=== PATIENT | female | born 1965 | race Caucasian/White ===

== ENCOUNTER 2017-06-03 08:03 | Emergency (ER) | payer OTHER ==
[2017-06-03 08:13] VITALS: BMI 25.7
--- NOTE | 2017-06-03 09:07 | C.PDOC ---
History Of Present Illness 51 year old female presents to ED for evaluation of shortness of breath for the past 2 months but worse in the past 2 days and worse with exertion. Pt states it feels like asthma, but pt does not have history of asthma. Denies using inhaler. Denies history of smoking, or history of DVT or PE in the past. Denies cough, chest pain, or fever. Pt is a poor historian. Time Seen by Provider: 06/03/17 08:21 Chief Complaint (Nursing): Shortness Of Breath History Per: Patient History/Exam Limitations: no limitations Onset/Duration Of Symptoms: Days Current Symptoms Are (Timing): Still Present Severity: None Pain Scale Rating Of: 0 Associated Symptoms: denies: Fever, Chills, Sweating, Chest Pain, Bloody Cough, Productive Cough, Heart Racing, Leg/Calf Pain, Ankle/Leg Swelling, Dizziness, Light-headedness, Anxiety, Tingling In Hands Or Face, Musle Spasms In Hands Or Feet Recent travel outside of the [place]: No Additional History Per: Patient Past Medical History Reviewed: Historical Data, Nursing Documentation, Vital Signs Vital Signs: Last Vital Signs Temp 98.2 F 06/03/17 13:29 Pulse 72 06/03/17 13:29 Resp 18 06/03/17 13:29 BP 154/100 H 06/03/17 13:29 Pulse Ox 99 06/03/17 13:29 Family History: States: Unknown Family Hx - Social History Hx Alcohol Use: No Hx Substance Use: No - Immunization History Hx Tetanus Toxoid Vaccination: No Hx Influenza Vaccination: No Hx Pneumococcal Vaccination: No Review Of Systems Constitutional: Negative for: Fever, Chills Cardiovascular: Negative for: Chest Pain, Palpitations, Light Headedness Respiratory: Positive for: Shortness of Breath, SOB with Excertion. Negative for: Cough, Sputum Physical Exam - Physical Exam Appears: Non-toxic, No Acute Distress Skin: Normal Color, Warm, Dry Head: Atraumatic, Normacephalic Eye(s): bilateral: Normal Inspection Oral Mucosa: Moist Chest: Symmetrical Cardiovascular: Rhythm Regular, No Murmur Respiratory: Normal Breath Sounds, No Accessory Muscle Use, No Rales, No Rhonchi , No Wheezing Gastrointestinal/Abdominal: Soft, No Tenderness Extremity: Normal ROM, No Pedal Edema Neurological/Psych: Oriented x3, Normal Speech ED Course And Treatment - Laboratory Results Result Diagrams: 06/03/17 09:18 06/03/17 09:18 ECG: Interpreted By Me, Viewed By Me ECG Rhythm: Sinus Rhythm ECG Interpretation: No Acute Changes Interpretation Of ECG: Normal axis, normal intervals. Poor R wave progression. Non-specific T wave changes. Rate From EC (bpm) O2 Sat by Pulse Oximetry: 95 (RA) Pulse Ox Interpretation: Normal Medical Decision Making Medical Decision Making: Blood work, UA, EKG, CXR ordered and reviewed. Assessment: Shortness of breath On re-eval, pt reports feeling better. Pt reports improvement after nebulizer treatment. Labs reviewed. 2 sets of troponin done due to poorly described shortness of breath. Patient is being discharged home with instructions to follow up with PMD in 1-2 days for further evaluation. Return to ED if symptoms worsen or persist. Disposition Counseled Patient/Family Regarding: Studies Performed, Diagnosis, Need For Followup, Rx Given - Disposition Referrals: [facility] [Outside] [facility] [Outside] Disposition: HOME/ ROUTINE Disposition Time: 13:12 Condition: STABLE Additional Instructions: follow up with medical clinic in 2 days call to make an appointment use medications as prescribed return to hospital if symptoms worsens or progress Prescriptions: Albuterol HFA [Ventolin HFA 90 mcg/actuation (8 g)] 2 puff IH [id number] #1 puff Instructions: Dyspnea (ED), Bronchospasm (ED) Forms: [facility] (Polish), General Discharge Instructions - Clinical Impression Clinical Impression: Dyspnea, Bronchospasm - Scribe Statement The provider has reviewed the documentation as recorded by the Amelie Reina All medical record entries made by the Averyiblinh were at my direction and personally dictated by me. I have reviewed the chart and agree that the record accurately reflects my personal performance of the history, physical exam, medical decision making, and the department course for this patient. I have also personally directed, reviewed, and agree with the discharge instructions and disposition.
[2017-06-03 09:28] LABS: BASO % 0.7 % (0.0-2.0); EOS # 0.1 K/uL (0.0-0.7); EOS % 2.1 % (0.0-4.0); HEMATOCRIT 36.4 % (34.0-47.0); LYMPH # 1.5 K/uL (1.0-4.3); LYMPH % 26.9 % (20.0-40.0); MEAN CELL VOLUME 88.8 fL (81.0-99.0); MEAN CORPUSCULAR HEMOGLOBIN 30.4 pg (27.0-31.0); MEAN CORPUSCULAR HGB CONC 34.2 g/dL (33.0-37.0); MEAN PLATELET VOLUME 7.8 fL (7.2-11.7); MONO # 0.4 K/uL (0.0-0.8); MONO % 7.5 % (0.0-10.0); RED CELL DISTRIBUTION WIDTH 13.9 % (11.5-14.5); WHITE BLOOD COUNT 5.7 K/uL (4.8-10.8)
[2017-06-03 09:37] LABS: ALB/GLOB RATIO 1.4 (1.0-2.1); ALKALINE PHOSPHATASE 78 U/L (38-126); ALT/SGPT 33 U/L (9-52); AST/SGOT 23 U/L (14-36); BILIRUBIN,TOTAL 0.7 mg/dL (0.2-1.3); BLOOD UREA NITROGEN 9 mg/dL (7-17); CALCIUM 9.1 mg/dl (8.6-10.4); CARBON DIOXIDE 32 mmol/L (22-30); CHLORIDE 100 mmol/L (98-107); GFR AFRICAN-AMERICAN > 60; GLUCOSE,RANDOM 94 mg/dL (65-105); SODIUM 138 mmol/L (132-148); TOTAL PROTEIN 6.6 g/dL (6.3-8.3)
[2017-06-03 09:40] LABS: RBC URINE < 1 /hpf (0-3); URINE BACTERIA RARE (<OCC); URINE BILIRUBIN NEGATIVE (NEGATIVE); URINE BLOOD NEGATIVE (NEGATIVE); URINE COLOR Yellow (YELLOW); URINE GLUCOSE (UA) NORMAL (Normal); URINE KETONE NEGATIVE (NEGATIVE); URINE LEUKOCYTE ESTERASE 2+ Leu/uL (Negative); URINE PROTEIN NEGATIVE (NEGATIVE); URINE UROBILINOGEN NORMAL mg/dL (0.2-1.0)
[2017-06-03 09:44] LABS: WBC URINE 11 /hpf (0-5)
--- NOTE | 2017-06-03 09:55 | RAD ---
HISTORY: SOB COMPARISON: No prior. TECHNIQUE: Chest PA and lateral FINDINGS: LUNGS: No active pulmonary disease. PLEURA: No significant pleural effusion identified. No pneumothorax apparent. CARDIOVASCULAR: Normal. OSSEOUS STRUCTURES: Thoracic spondylosis VISUALIZED UPPER ABDOMEN: Normal. OTHER FINDINGS: None. IMPRESSION: No active disease.
[2017-06-03] MEDS ORDERED: Albuterol 0.083% Inhal Sol (2.5 mg/3 mL) UD INH STA (11:13)
[2017-06-03] MEDS ORDERED: Albuterol 0.083% Inhal Sol (2.5 mg/3 mL) UD ONE (11:23)
[2017-06-03 11:42] VITALS: RESP 18
[2017-06-03 13:31] VITALS: BP 154/100; PULSE 72; TEMP 98.2
[2017-06-03 13:38] VITALS: O2SAT 95
--- NOTE | 2017-06-04 18:40 | CARD ---
APPROVED REPORT EKG Measurement Heart [id number] AR [id number] <Conclusion> Normal sinus rhythm Anterior infarct, age undetermined Abnormal ECG
== END 2017-06-03 13:40 | disposition home or self-care (01) ==
LOC: C.ER 08:03
DX: J98.01 Acute bronchospasm (principal); R06.00 Dyspnea, unspecified

== ENCOUNTER 2017-12-23 07:30 | Observation (INO) | payer OTHER ==
[2017-12-23 07:30] VITALS: BMI 25.7
--- NOTE | 2017-12-23 07:55 | C.PDOC ---
History Of Present Illness 52 y/o female with Hx of HTN and Asthma presents to ED with c/o chest pain developed this morning worse on exertion. Patient states pain is worse on left side of chest and admits to subjective dyspnea. Patient denies fever, palpitations, nausea, vomiting, leg swelling or any other complaints at this time. Time Seen by Provider: 12/23/17 07:33 Chief Complaint (Nursing): Chest Pain History Per: Patient History/Exam Limitations: no limitations Onset/Duration Of Symptoms: Hrs Current Symptoms Are (Timing): Still Present Past Medical History Reviewed: Historical Data, Nursing Documentation, Vital Signs Vital Signs: Last Vital Signs Temp 98.0 F 12/23/17 07:38 Pulse 50 L 12/23/17 13:12 Resp 12 12/23/17 13:12 BP 140/70 12/23/17 13:12 Pulse Ox 99 12/23/17 10:45 - Medical History PMH: Asthma, HTN Surgical History: No Surg Hx Family History: States: No Known Family Hx - Social History Hx Alcohol Use: No Hx Substance Use: No - Immunization History Hx Tetanus Toxoid Vaccination: No Hx Influenza Vaccination: No Hx Pneumococcal Vaccination: No Review Of Systems Except As Marked, All Systems Reviewed And Found Negative. Cardiovascular: Positive for: Chest Pain Respiratory: Positive for: Shortness of Breath Gastrointestinal: Negative for: Nausea, Vomiting, Abdominal Pain Skin: Negative for: Rash Physical Exam - Physical Exam Appears: Non-toxic, No Acute Distress Skin: Warm, Dry, No Rash Head: Atraumatic, Normacephalic Eye(s): bilateral: Normal Inspection Oral Mucosa: Moist Neck: Normal ROM, Supple Cardiovascular: Rhythm Regular Respiratory: Normal Breath Sounds, No Accessory Muscle Use, No Rales, No Rhonchi , No Wheezing Gastrointestinal/Abdominal: Soft, No Tenderness, No Guarding, No Rebound Extremity: No Pedal Edema, Capillary Refill (<2 seconds) Neurological/Psych: Oriented x3, Normal Speech ED Course And Treatment - Laboratory Results Result Diagrams: 12/23/17 08:14 12/23/17 08:14 ECG: Interpreted By Me, Viewed By Me ECG Rhythm: Sinus Rhythm, Nonspecific Changes Rate From EC (BPM) O2 Sat by Pulse Oximetry: 100 (RA) Medical Decision Making Medical Decision Making: cp r/o acs case discussed with fior, accepted by obs Disposition - Disposition Disposition: HOSPITALIZED Disposition Time: 11:00 Condition: STABLE - Clinical Impression Clinical Impression: Chest pain - Scribe Statement The provider has reviewed the documentation as recorded by the Averyibe Sylvia Sales All medical record entries made by the Scribe were at my direction and personally dictated by me. I have reviewed the chart and agree that the record accurately reflects my personal performance of the history, physical exam, medical decision making, and the department course for this patient. I have also personally directed, reviewed, and agree with the discharge instructions and disposition. Decision To Admit - Pt Status Changed To: Hospital Disposition Of: Observation - . Bed Request Type: Telemetry Admitting Physician: Jarred Reina Patient Diagnosis: Chest pain
[2017-12-23 08:23] LABS: BASO % 0.5 % (0.0-2.0); EOS % 0.1 % (0.0-4.0); HEMOGLOBIN 12.9 g/dL (11.0-16.0); LYMPH % 28.8 % (20.0-40.0); MEAN CELL VOLUME 87.8 fL (81.0-99.0); MEAN CORPUSCULAR HEMOGLOBIN 29.8 pg (27.0-31.0); MEAN CORPUSCULAR HGB CONC 33.9 g/dL (33.0-37.0); MEAN PLATELET VOLUME 8.2 fL (7.2-11.7); MONO # 0.5 K/uL (0.0-0.8); MONO % 6.6 % (0.0-10.0); NEUT # 4.5 K/uL (1.8-7.0); NRBC % 0.1 % (0.0-2.0); RBC 4.33 Mil/uL (3.80-5.20); RED CELL DISTRIBUTION WIDTH 14.4 % (11.5-14.5)
[2017-12-23 08:30] LABS: HCG,QUALITATIVE URINE NEGATIVE (NEGATIVE)
[2017-12-23 08:32] LABS: SQUAMOUS EPITHIAL < 1 /hpf (0-5); URINE BACTERIA OCC (<OCC); URINE BILIRUBIN NEGATIVE (NEGATIVE); URINE BLOOD NEGATIVE (NEGATIVE); URINE CLARITY Clear (Clear); URINE COLOR Straw (YELLOW); URINE GLUCOSE (UA) NORMAL (Normal); URINE LEUKOCYTE ESTERASE NEG Leu/uL (Negative); URINE PROTEIN NEGATIVE (NEGATIVE); URINE UROBILINOGEN NORMAL mg/dL (0.2-1.0)
[2017-12-23 08:36] LABS: D DIMER < 200 ng/mlDDU (0-243); INR 1.1; PARTIAL THROMBOPLASTIN TIME 34 SECONDS (21-34); PROTHROMBIN TIME 12.1 SECONDS (9.7-12.2)
[2017-12-23 08:44] LABS: ALB/GLOB RATIO 1.5 (1.0-2.1); ALBUMIN 4.7 g/dL (3.5-5.0); CALCIUM 9.8 mg/dl (8.6-10.4); GFR AFRICAN-AMERICAN > 60; GFR NON-AFRICAN AMERICAN > 60
[2017-12-23 08:46] LABS: ALT/SGPT 119 U/L (9-52); AST/SGOT 85 U/L (14-36); BLOOD UREA NITROGEN 13 mg/dL (7-17)
[2017-12-23 08:52] LABS: B-TYPE NATRIURETIC PEPTIDE 71.7 pg/mL (0-900)
--- NOTE | 2017-12-23 11:07 | RAD ---
Date of service: 12/23/2017 PROCEDURE: CHEST RADIOGRAPH, 1 VIEW HISTORY: chest pain COMPARISON: Chest radiograph dated 06/03/2017. FINDINGS: LUNGS: Clear. PLEURA: No pneumothorax or pleural fluid seen. CARDIOVASCULAR: Normal. OSSEOUS STRUCTURES: No significant abnormalities. VISUALIZED UPPER ABDOMEN: Normal. OTHER FINDINGS: None. IMPRESSION: No active disease.
--- NOTE | 2017-12-23 15:21 | CP.PCM.HP ---
<Sandip Caba - Last Filed: 12/23/17 19:30> History of Present Illness - History of Present Illness History of Present Illness: CC: leg swelling & shortness of breath HPI: 52 year old [place] female w/ PMHx of questionable HTN & Asthma presents to ED with 2 weeks of bilateral lower extremity swelling associated with shortness of breath. Pt states she normally can walk for several hours a day, but for the past 2 weeks she can only walk for a few minutes before becoming short of breath and having B/L extremity swelling. Pt swelling improves with rest and elevation of legs. Pt additionally has diffuse pain in back during these episodes. Pt is unable to describe the pain further but states the pain is roughly 3/10 and remains isolated in the back. Pt states she saw her primary on Wednesday and was given the below medications for the shortness of breath, swelling , and back pain. Furthermore pt states she has a sensation of feeling full with minimal diet that has been ongoing for the past several weeks. Pt denies fevers , chills, chest pain, weakness, constipation, diarrhea, nausea, vomiting. ROS: Constitutional: -fevers/chills, -nausea/vomiting HEENT: no vision changes, no hearing changes, no throat pain Cardio: no chest pain, palpation, + dyspnea Resp: + dyspnea, +dyspnea on exhertion GI: -abdominal pain, - nausea, - vomiting, : -dysruia, - increase frequency Neuro: -dizziness, -headaches, -syncope MSK: 5/5+ strength in all 4 extremities, pulses present in all extremities, PMD: Dr. Lim PMHx: HTN? Asthma? (pt denies any history, but it is stated in past charts) Meds: Prednisone 10 mg PO BID, Hydrochlorothiazide 25 mg PO QD, Naproxen 375 mg BID PSHx: Total abdominal hysterectomy with bilateral salpingo-oophorectomy Allergies: NKDA Social: Denies tobacco/smoking, Denies alcohol use, Denies FHx: Mother , had HTN, Father living, healthy, 1 of 8 siblings, 1 has diabetes & HTN Present on Admission - Present on Admission Any Indicators Present on Admission: No History of DVT/PE: No History of Uncontrolled Diabetes: No Urinary Catheter: No Decubitus Ulcer Present: No Review of Systems - Constitutional Constitutional: absent: Anorexia, Chills, Frequent Falls, Night Sweats, Weakness - EENT Eyes: absent: Change in Vision, Dry Eye Nose/Mouth/Throat: absent: Nasal Congestion, Nasal Discharge, Dry Mouth, Lip Swelling - Cardiovascular Cardiovascular: Dyspnea, Dyspnea on Exertion, Edema. absent: Chest Pain, Chest Pain at Rest, Irregular Heart Rhythm, Lightheadedness, Orthopnea, Palpitations - Respiratory Respiratory: Dyspnea, Dyspnea on Exertion. absent: Cough, Wheezing, Snoring, Stridor, Pain on Inspiration, Chest Congestion - Gastrointestinal Gastrointestinal: Early Satiety. absent: Abdominal Pain, Change in Stool Character, Cramping, Diarrhea, Excessive Flatus - Genitourinary Genitourinary: absent: Hematuria, Pyuria, Urinary Hesitance, Freq UTI - Musculoskeletal Musculoskeletal: absent: Joint Swelling, Muscle Weakness, Neck Pain, Stiffness - Neurological Neurological: absent: Abnormal Hearing, Dizziness, Headaches, Syncope - Psychiatric Psychiatric: absent: Behavioral Changes, Confusion, Depression - Endocrine Endocrine: absent: Change in Body Appearance, Polydipsia, Polyphagia, Polyuria - Hematologic/Lymphatic Hematologic: absent: Easy Bleeding, Easy Bruising Past Patient History - Past Social History Smoking Status: Never Smoked Chewing Tobacco Use: No Cigar Use: No Alcohol: None Drugs: Denies - CARDIAC Hx Hypertension: Yes - PULMONARY Hx Asthma: Yes - PSYCHIATRIC Hx Substance Use: No - SURGICAL HISTORY Hx Surgeries: No - ANESTHESIA Hx Anesthesia: No Meds Allergies/Adverse Reactions: Allergies Allergy/AdvReac Type Severity Reaction Status Date / Time No Known Allergies Allergy Verified 12/23/17 07:38 Physical Exam - Constitutional Appears: Well, Non-toxic, No Acute Distress - Head Exam Head Exam: ATRAUMATIC, NORMAL INSPECTION, NORMOCEPHALIC - Eye Exam Eye Exam: EOMI, Normal appearance - ENT Exam ENT Exam: Mucous Membranes Moist - Respiratory Exam Respiratory Exam: Clear to Auscultation Bilateral, NORMAL BREATHING PATTERN. absent: Rales, Rhonchi, Wheezes - Cardiovascular Exam Cardiovascular Exam: REGULAR RHYTHM, +S1, +S2. absent: Irregular Rhythm, Systolic Murmur - GI/Abdominal Exam GI & Abdominal Exam: Normal Bowel Sounds, Soft. absent: Bruit, Diminished Bowel Sounds, Distended, Firm, Guarding - Extremities Exam Extremities exam: Positive for: full ROM, normal inspection. Negative for: calf tenderness, joint swelling, pedal edema, tenderness - Neurological Exam Neurological exam: Alert, Altered, CN II-XII Intact, Oriented x3 - Psychiatric Exam Psychiatric exam: Normal Affect, Normal Mood - Skin Skin Exam: Dry, Intact, Normal Color, Warm Results - Vital Signs Recent Vital Signs: Last Vital Signs Temp 98.0 F 12/23/17 07:38 Pulse 59 L 12/23/17 14:35 Resp 12 12/23/17 14:35 BP 113/65 12/23/17 14:35 Pulse Ox 99 12/23/17 14:35 - Labs Result Diagrams: 12/23/17 08:14 12/23/17 08:14 Labs: Laboratory Results - last 24 hr 12/23/17 12/23/17 12/23/17 08:14 08:14 08:14 WBC 7.0 RBC 4.33 Hgb 12.9 Hct 38.0 MCV 87.8 MCH 29.8 MCHC 33.9 RDW 14.4 Plt Count 321 MPV 8.2 Neut % (Auto) 64.0 Lymph % (Auto) 28.8 [place] % (Auto) 6.6 Eos % (Auto) 0.1 Baso % (Auto) 0.5 Neut # (Auto) 4.5 Lymph # (Auto) 2.0 [place] # (Auto) 0.5 Eos # (Auto) 0.0 Baso # (Auto) 0.0 PT 12.1 INR 1.1 APTT 34 D-Dimer, Quantitative < 200 Sodium 144 Potassium 4.5 Chloride 105 Carbon Dioxide 27 Anion Gap 16 BUN 13 Creatinine 0.5 L Est GFR ( Amer) > 60 Est GFR (Non-Af Amer) > 60 Random Glucose 117 H Calcium 9.8 Total Bilirubin 1.0 AST 85 H D ALT 119 H D Alkaline Phosphatase 73 Troponin I < 0.0120 NT-Pro-B Natriuret Pep 71.7 Total Protein 7.7 Albumin 4.7 Globulin 3.1 Albumin/Globulin Ratio 1.5 Urine Color Urine Clarity Urine pH Ur Specific [place] Urine Protein Urine Glucose (UA) Urine Ketones Urine Blood Urine Nitrate Urine Bilirubin Urine Urobilinogen Ur Leukocyte Esterase Urine WBC (Auto) Urine RBC (Auto) Ur Squamous Epith Cells Urine Bacteria Urine HCG, Qual 12/23/17 12/23/17 08:14 14:21 WBC RBC Hgb Hct MCV MCH MCHC RDW Plt Count MPV Neut % (Auto) Lymph % (Auto) [place] % (Auto) Eos % (Auto) Baso % (Auto) Neut # (Auto) Lymph # (Auto) [place] # (Auto) Eos # (Auto) Baso # (Auto) PT INR APTT D-Dimer, Quantitative Sodium Potassium Chloride Carbon Dioxide Anion Gap BUN Creatinine Est GFR ( Amer) Est GFR (Non-Af Amer) Random Glucose Calcium Total Bilirubin AST ALT Alkaline Phosphatase Troponin I < 0.0120 NT-Pro-B Natriuret Pep Total Protein Albumin Globulin Albumin/Globulin Ratio Urine Color Straw Urine Clarity Clear Urine pH 7.0 Ur Specific [place] 1.004 Urine Protein Negative Urine Glucose (UA) Normal Urine Ketones Negative Urine Blood Negative Urine Nitrate Negative Urine Bilirubin Negative Urine Urobilinogen Normal Ur Leukocyte Esterase Neg Urine WBC (Auto) 1 Urine RBC (Auto) 1 Ur Squamous Epith Cells < 1 Urine Bacteria Occ H Urine HCG, Qual Negative Assessment & Plan - Assessment and Plan (Free Text) Assessment: 52 year old [place] female w/ questionable history of HTN & Asthma, presented to ED with 2 weeks of SOB & B/L LE edema: 1) C/C SOB w/ walking w/ B/L LE edema - chest xray - no acute changes, possible cardiomegaly - BNP - normal - D-dimer - negative - Wells criteria 0- no indication for CT to r/o PE - could be asthma, but exam benign 2) Questionable Chest Pain - troponins neg X2, will F/u w/ evening 8pm - EKG NSR - f/u TSH/ T4 - f/u echo 3) Questionable HTN - Monitor HTN vitals Q4, 4) Questionable Asthma - need out patient PFTs 5) Elevated LFTs - possibly due to HCTZ, hold for now 6) Possible GERD - pt has early satiety feeling - Pepcid 20mg BID 7) Prophylaxis - B/L SVDs <Jarred Reina - Last Filed: 12/23/17 20:03> Results - Vital Signs Recent Vital Signs: Last Vital Signs Temp 97.5 F L 12/23/17 15:55 Pulse 58 L 12/23/17 15:55 Resp 20 12/23/17 15:55 BP 146/83 12/23/17 15:55 Pulse Ox 98 12/23/17 15:55 - Labs Result Diagrams: 12/23/17 08:14 12/23/17 08:14 Labs: Laboratory Results - last 24 hr 12/23/17 12/23/17 12/23/17 08:14 08:14 08:14 WBC 7.0 RBC 4.33 Hgb 12.9 Hct 38.0 MCV 87.8 MCH 29.8 MCHC 33.9 RDW 14.4 Plt Count 321 MPV 8.2 Neut % (Auto) 64.0 Lymph % (Auto) 28.8 [place] % (Auto) 6.6 Eos % (Auto) 0.1 Baso % (Auto) 0.5 Neut # (Auto) 4.5 Lymph # (Auto) 2.0 [place] # (Auto) 0.5 Eos # (Auto) 0.0 Baso # (Auto) 0.0 PT 12.1 INR 1.1 APTT 34 D-Dimer, Quantitative < 200 Sodium 144 Potassium 4.5 Chloride 105 Carbon Dioxide 27 Anion Gap 16 BUN 13 Creatinine 0.5 L Est GFR ( Amer) > 60 Est GFR (Non-Af Amer) > 60 Random Glucose 117 H Calcium 9.8 Total Bilirubin 1.0 AST 85 H D ALT 119 H D Alkaline Phosphatase 73 Troponin I < 0.0120 NT-Pro-B Natriuret Pep 71.7 Total Protein 7.7 Albumin 4.7 Globulin 3.1 Albumin/Globulin Ratio 1.5 Free T4 Urine Color Urine Clarity Urine pH Ur Specific [place] Urine Protein Urine Glucose (UA) Urine Ketones Urine Blood Urine Nitrate Urine Bilirubin Urine Urobilinogen Ur Leukocyte Esterase Urine WBC (Auto) Urine RBC (Auto) Ur Squamous Epith Cells Urine Bacteria Urine HCG, Qual 12/23/17 12/23/17 12/23/17 08:14 14:21 14:27 WBC RBC Hgb Hct MCV MCH MCHC RDW Plt Count MPV Neut % (Auto) Lymph % (Auto) [place] % (Auto) Eos % (Auto) Baso % (Auto) Neut # (Auto) Lymph # (Auto) [place] # (Auto) Eos # (Auto) Baso # (Auto) PT INR APTT D-Dimer, Quantitative Sodium Potassium Chloride Carbon Dioxide Anion Gap BUN Creatinine Est GFR ( Amer) Est GFR (Non-Af Amer) Random Glucose Calcium Total Bilirubin AST ALT Alkaline Phosphatase Troponin I < 0.0120 NT-Pro-B Natriuret Pep Total Protein Albumin Globulin Albumin/Globulin Ratio Free T4 0.78 Urine Color Straw Urine Clarity Clear Urine pH 7.0 Ur Specific [place] 1.004 Urine Protein Negative Urine Glucose (UA) Normal Urine Ketones Negative Urine Blood Negative Urine Nitrate Negative Urine Bilirubin Negative Urine Urobilinogen Normal Ur Leukocyte Esterase Neg Urine WBC (Auto) 1 Urine RBC (Auto) 1 Ur Squamous Epith Cells < 1 Urine Bacteria Occ H Urine HCG, Qual Negative Attending/Attestation - Attestation I have personally seen and examined this patient.: Yes I have fully participated in the care of the patient.: Yes I have reviewed all pertinent clinical information: Yes Notes (Text): 12/23/17 19:53 Patient was seen and examined at 6:15 PM History, Physical, Assessment and Plan were gone over with the resident Please note that the patient was completely asymptomatic at the time of my exam She has no complaints Exam was completely unremarkable Explained to patient that if the Troponins x 3 were negative then she will be discharged in the morning Also explained that if the HERMES with Reflex and RF workup were not back by the time of her discharge that she will have to follow up results with her PMD Jarred Reina D.O.
[2017-12-23 15:56] VITALS: RESP 20
[2017-12-23 20:10] LABS: BASO % 0.5 % (0.0-2.0); EOS # 0.1 K/uL (0.0-0.7); EOS % 1.2 % (0.0-4.0); HEMOGLOBIN 12.3 g/dL (11.0-16.0); LYMPH # 3.3 K/uL (1.0-4.3); MEAN CELL VOLUME 88.8 fL (81.0-99.0); MEAN CORPUSCULAR HEMOGLOBIN 28.8 pg (27.0-31.0); MEAN CORPUSCULAR HGB CONC 32.4 g/dL (33.0-37.0); MEAN PLATELET VOLUME 8.2 fL (7.2-11.7); MONO # 0.4 K/uL (0.0-0.8); MONO % 6.2 % (0.0-10.0); NEUT # 3.4 K/uL (1.8-7.0); NEUT % 47.1 % (50.0-75.0); NRBC % 0.1 % (0.0-2.0); RBC 4.29 Mil/uL (3.80-5.20); RED CELL DISTRIBUTION WIDTH 14.3 % (11.5-14.5); WHITE BLOOD COUNT 7.2 K/uL (4.8-10.8)
[2017-12-23 20:41] LABS: ALB/GLOB RATIO 1.7 (1.0-2.1); ALBUMIN 4.1 g/dL (3.5-5.0); ALT/SGPT 110 U/L (9-52); AST/SGOT 58 U/L (14-36); BLOOD UREA NITROGEN 11 mg/dL (7-17); CALCIUM 9.3 mg/dl (8.6-10.4); GFR AFRICAN-AMERICAN > 60; GFR NON-AFRICAN AMERICAN > 60
--- NOTE | 2017-12-24 06:16 | CP.PCM.PN ---
Objective - Vital Signs/Intake and Output Vital Signs (last 24 hours): Temp Pulse Resp BP Pulse Ox 98.2 F 58 L 20 106/66 98 12/24/17 00:35 12/24/17 00:35 12/24/17 00:35 12/24/17 00:35 12/24/17 00:35 - Medications Medications: Current Medications Famotidine (Pepcid) 20 mg PO BID PURVI Last Admin: 12/23/17 20:29 Dose: 20 mg Potassium Chloride (Potassium Chloride Oral Soln) 40 meq PO ONCE ONE Stop: 12/24/17 10:01 - Labs Labs: 12/23/17 19:54 12/23/17 19:54 PT 12.1 SECONDS (9.7-12.2) 12/23/17 08:14 INR 1.1 12/23/17 08:14 APTT 34 SECONDS (21-34) 12/23/17 08:14
[2017-12-24] MEDS ORDERED: Potassium Chloride 20 mEq/15 ml LIQ UD PO ONE ×2 (08:00→10:00)
[2017-12-24 08:02] LABS: BASO % 0.5 % (0.0-2.0); EOS # 0.2 K/uL (0.0-0.7); EOS % 2.5 % (0.0-4.0); HEMOGLOBIN 13.1 g/dL (11.0-16.0); LYMPH # 2.8 K/uL (1.0-4.3); LYMPH % 43.2 % (20.0-40.0); MEAN CELL VOLUME 88.6 fL (81.0-99.0); MEAN CORPUSCULAR HEMOGLOBIN 28.8 pg (27.0-31.0); MEAN CORPUSCULAR HGB CONC 32.5 g/dL (33.0-37.0); MEAN PLATELET VOLUME 8.3 fL (7.2-11.7); MONO # 0.5 K/uL (0.0-0.8); MONO % 7.4 % (0.0-10.0); NEUT % 46.4 % (50.0-75.0); NRBC % 0.1 % (0.0-2.0); RBC 4.56 Mil/uL (3.80-5.20); RED CELL DISTRIBUTION WIDTH 14.2 % (11.5-14.5); WHITE BLOOD COUNT 6.5 K/uL (4.8-10.8)
--- NOTE | 2017-12-24 08:09 | CP.PCM.PCO ---
Physician Communication Note - Physician Communication Note Physician Communication Note: Please see above
[2017-12-24 08:17] LABS: ALB/GLOB RATIO 1.4 (1.0-2.1); ALBUMIN 4.1 g/dL (3.5-5.0); ALT/SGPT 158 U/L (9-52); AST/SGOT 115 U/L (14-36); BLOOD UREA NITROGEN 12 mg/dL (7-17); CALCIUM 8.9 mg/dl (8.6-10.4); GFR AFRICAN-AMERICAN > 60; GFR NON-AFRICAN AMERICAN > 60
[2017-12-24 08:21] VITALS: BP 118/74; PULSE 78; TEMP 97.6; O2SAT 100
[2017-12-24] MEDS ORDERED: Enoxaparin 40 mg Syringe SC SCH (10:00)
--- NOTE | 2017-12-24 11:58 | CARD ---
APPROVED REPORT Date of service: 12/23/2017 EKG Measurement Heart [id number] MD [id number] <Conclusion> Sinus bradycardia Nonspecific T wave abnormality Abnormal ECG
--- NOTE | 2017-12-24 11:59 | CARD ---
APPROVED REPORT Date of service: 12/23/2017 EKG Measurement Heart [id number] <Conclusion> Normal sinus rhythm Nonspecific T wave abnormality Abnormal ECG
--- NOTE | 2017-12-24 16:22 | CP.PCM.DIS ---
<Sandip Caba M - Last Filed: 12/24/17 16:53> Provider - Provider Date of Admission: 12/23/17 09:14 Attending physician: Jarred Reina MD Primary care physician: Dr. Watkins Time Spent in preparation of Discharge (in minutes): 40 Diagnosis - Discharge Diagnosis (1) Dyspnea Status: Resolved Comment: Patient was asymptomatic at our examination X 2 days. (2) Chest pain Status: Acute Comment: Ruled out ACS, tropinins negative X3, EKG was NSR, chest XRay was neg. Hospital Course - Lab Results Lab Results: Most Recent Lab Values WBC 6.5 K/uL (4.8-10.8) 12/24/17 07:48 RBC 4.56 Mil/uL (3.80-5.20) 12/24/17 07:48 Hgb 13.1 g/dL (11.0-16.0) 12/24/17 07:48 Hct 40.4 % (34.0-47.0) 12/24/17 07:48 MCV 88.6 fL (81.0-99.0) 12/24/17 07:48 MCH 28.8 pg (27.0-31.0) 12/24/17 07:48 MCHC 32.5 g/dL (33.0-37.0) L 12/24/17 07:48 RDW 14.2 % (11.5-14.5) 12/24/17 07:48 Plt Count 323 K/uL (130-400) 12/24/17 07:48 MPV 8.3 fL (7.2-11.7) 12/24/17 07:48 Neut % (Auto) 46.4 % (50.0-75.0) L 12/24/17 07:48 Lymph % (Auto) 43.2 % (20.0-40.0) H 12/24/17 07:48 [place] % (Auto) 7.4 % (0.0-10.0) 12/24/17 07:48 Eos % (Auto) 2.5 % (0.0-4.0) 12/24/17 07:48 Baso % (Auto) 0.5 % (0.0-2.0) 12/24/17 07:48 Neut # (Auto) 3.0 K/uL (1.8-7.0) 12/24/17 07:48 Lymph # (Auto) 2.8 K/uL (1.0-4.3) 12/24/17 07:48 [place] # (Auto) 0.5 K/uL (0.0-0.8) 12/24/17 07:48 Eos # (Auto) 0.2 K/uL (0.0-0.7) 12/24/17 07:48 Baso # (Auto) 0.0 K/uL (0.0-0.2) 12/24/17 07:48 PT 12.1 SECONDS (9.7-12.2) 12/23/17 08:14 INR 1.1 12/23/17 08:14 APTT 34 SECONDS (21-34) 12/23/17 08:14 D-Dimer, Quantitative < 200 ng/mlDDU (0-243) 12/23/17 08:14 Sodium 144 mmol/L (132-148) 12/24/17 07:48 Potassium 4.3 mmol/L (3.6-5.2) 12/24/17 07:48 Chloride 106 mmol/L (98-107) 12/24/17 07:48 Carbon Dioxide 27 mmol/L (22-30) 12/24/17 07:48 Anion Gap 16 (10-20) 12/24/17 07:48 BUN 12 mg/dL (7-17) 12/24/17 07:48 Creatinine 0.6 mg/dL (0.7-1.2) L 12/24/17 07:48 Est GFR ( Amer) > 60 12/24/17 07:48 Est GFR (Non-Af Amer) > 60 12/24/17 07:48 Random Glucose 78 mg/dL (65-105) 12/24/17 07:48 Calcium 8.9 mg/dl (8.6-10.4) 12/24/17 07:48 Phosphorus 4.0 mg/dL (2.5-4.5) 12/24/17 07:48 Magnesium 2.3 mg/dL (1.6-2.3) 12/24/17 07:48 Total Bilirubin 0.7 mg/dL (0.2-1.3) 12/24/17 07:48 AST 115 U/L (14-36) H D 12/24/17 07:48 ALT 158 U/L (9-52) H D 12/24/17 07:48 Alkaline Phosphatase 82 U/L (38-126) 12/24/17 07:48 Troponin I < 0.0120 ng/mL (0.00-0.120) 12/23/17 20:15 NT-Pro-B Natriuret Pep 71.7 pg/mL (0-900) 12/23/17 08:14 Total Protein 7.0 g/dL (6.3-8.3) 12/24/17 07:48 Albumin 4.1 g/dL (3.5-5.0) 12/24/17 07:48 Globulin 2.9 gm/dL (2.2-3.9) 12/24/17 07:48 Albumin/Globulin Ratio 1.4 (1.0-2.1) 12/24/17 07:48 Free T4 0.78 ng/dL (0.78-2.19) 12/23/17 14:27 TSH 3rd Generation 8.35 mIU/L (0.46-4.68) H 12/23/17 19:54 Urine Color Straw (YELLOW) 12/23/17 08:14 Urine Clarity Clear (Clear) 12/23/17 08:14 Urine pH 7.0 (5.0-8.0) 12/23/17 08:14 Ur Specific [place] 1.004 (1.003-1.030) 12/23/17 08:14 Urine Protein Negative mg/dL (NEGATIVE) 12/23/17 08:14 Urine Glucose (UA) Normal mg/dL (Normal) 12/23/17 08:14 Urine Ketones Negative mg/dL (NEGATIVE) 12/23/17 08:14 Urine Blood Negative (NEGATIVE) 12/23/17 08:14 Urine Nitrate Negative (NEGATIVE) 12/23/17 08:14 Urine Bilirubin Negative (NEGATIVE) 12/23/17 08:14 Urine Urobilinogen Normal mg/dL (0.2-1.0) 12/23/17 08:14 Ur Leukocyte Esterase Neg Parvez/uL (Negative) 12/23/17 08:14 Urine WBC (Auto) 1 /hpf (0-5) 07/12/18 08:14 Urine RBC (Auto) 1 /hpf (0-3) 12/23/17 08:14 Ur Squamous Epith Cells < 1 /hpf (0-5) 12/23/17 08:14 Urine Bacteria Occ (<OCC) H 12/23/17 08:14 Urine HCG, Qual Negative (NEGATIVE) 12/23/17 08:14 - Hospital Course Hospital Course: HPI: 52 year old [place] female w/ PMHx of questionable HTN & Asthma presents to ED with 2 weeks of bilateral lower extremity swelling associated with shortness of breath. Pt states she normally can walk for several hours a day, but for the past 2 weeks she can only walk for a few minutes before becoming short of breath and having B/L extremity swelling. Pt swelling improves with rest and elevation of legs. Pt additionally has diffuse pain in back during these episodes. Pt is unable to describe the pain further but states the pain is roughly 3/10 and remains isolated in the back. Pt states she saw her primary on Wednesday and was given the below medications for the shortness of breath, swelling , and back pain. Furthermore pt states she has a sensation of feeling full with minimal diet that has been ongoing for the past several weeks. Pt denies fevers , chills, chest pain, weakness, constipation, diarrhea, nausea, vomiting. Patient was admitted to telemetry and had no arrhythmias overnight. Patient also had troponins negative X3, chest xray was negative, and EKG was negative as well. Patient was observed overnight and patient continued to have no symptoms since admission to discharge. Patient was given an albuterol inhaler for a questionable history of asthma. Patient also had blood work for HERMES w/ reflex and RF due to complaints of back pain w/ chest pain, SOB, and back pain. LFTs are trending down. This may have been secondary to the HCTZ that was started outpatient for her complaints of bilateral lower leg edema. Please note that there has been NO edema on exam of her extremities since discontinuation of the drug since her admission. This is only a summary of the patient stay at the hospital. Please see EMR for full history of patient during hospital stay. Prior to discharge: Her vitals are stable Patient is stable for discharge The following instructions were explained to patient by Dr. Lakeisha Reina in [facility] and copy of them will need to be provided to her upon discharge: 1). Please schedule follow up with your primary care physician Dr. Lou Lim to take place in the next 7 days. 2). Through Dr. Lim's office follow up the blood work results for the following tests: HERMES with Reflex Rheumatoid Factor 3). Please have repeat blood work through Dr. Lim's office to make sure that your liver enzymes have normalized. They may have been high due to the Hydrocholorthiazide. 4). STOP taking Hydrocholorthiazide and Prednisone 5). Please stay well hydrated with water 6). Please take care and be well Discharge Exam - Head Exam Head Exam: ATRAUMATIC, NORMAL INSPECTION, NORMOCEPHALIC - Eye Exam Eye Exam: EOMI, Normal appearance Pupil Exam: NORMAL ACCOMODATION - ENT Exam ENT Exam: Mucous Membranes Moist. absent: Mucous Membranes Dry - Respiratory Exam Respiratory Exam: Clear to PA & Lateral, NORMAL BREATHING PATTERN, UNREMARKABLE. absent: Wheezes, Respiratory Distress, Stridor - Cardiovascular Exam Cardiovascular Exam: +S1, +S2. absent: Tachycardia, Irregular Rhythm, Systolic Murmur - GI/Abdominal Exam GI & Abdominal Exam: Normal Bowel Sounds, Soft. absent: Diminished Bowel Sounds , Firm, Guarding - Extremities Exam Additional comments: no calf tenderness, pedal pulses in tack b/l all 4 extremities - Back Exam Back exam: absent: CVA tenderness (L), CVA tenderness (R) - Neurological Exam Neurological exam: Alert, Oriented x3 - Psychiatric Exam Psychiatric exam: Normal Affect, Normal Mood - Skin Skin Exam: Dry, Intact, Normal Color, Warm Discharge Plan - Follow Up Plan Condition: STABLE Disposition: HOME/ ROUTINE Instructions: Asthma in Adults, Chest Pain, Asthma, Adult (DC), Chest Pain That Is Not Caused by the Heart (DC), Dyspnea (GEN) Additional Instructions: The following instructions were explained to patient by my in [facility] and copy of them will need to be provided to her upon discharge: 1). Please schedule follow up with your primary care physician Dr. Lou Lim to take place in the next 7 days. 2). Through Dr. Lim's office follow up the blood work results for the following tests: HERMES with Reflex Rheumatoid Factor 3). Please have repeat blood work through Dr. Lim's office to make sure that your liver enzymes have normalized. They may have been high due to the Hydrocholorthiazide. 4). Through Dr. Lim's office obtain referral for lung physician to measure your lung volumes and test your for Asthma. You may continue your Albuterol Inhaler as needed every 6 hours. 5). STOP taking Hydrocholorthiazide and Prednisone 6). Please stay well hydrated with water 7). Please take care and be well Referrals: Jarred Reina MD [Staff Provider] - <Jarred Reina - Last Filed: 12/24/17 19:48> Provider - Provider Date of Admission: 12/23/17 09:14 Attending physician: Jarred Reina MD Hospital Course - Lab Results Lab Results: Most Recent Lab Values WBC 6.5 K/uL (4.8-10.8) 12/24/17 07:48 RBC 4.56 Mil/uL (3.80-5.20) 12/24/17 07:48 Hgb 13.1 g/dL (11.0-16.0) 12/24/17 07:48 Hct 40.4 % (34.0-47.0) 12/24/17 07:48 MCV 88.6 fL (81.0-99.0) 12/24/17 07:48 MCH 28.8 pg (27.0-31.0) 12/24/17 07:48 MCHC 32.5 g/dL (33.0-37.0) L 12/24/17 07:48 RDW 14.2 % (11.5-14.5) 12/24/17 07:48 Plt Count 323 K/uL (130-400) 12/24/17 07:48 MPV 8.3 fL (7.2-11.7) 12/24/17 07:48 Neut % (Auto) 46.4 % (50.0-75.0) L 12/24/17 07:48 Lymph % (Auto) 43.2 % (20.0-40.0) H 12/24/17 07:48 [place] % (Auto) 7.4 % (0.0-10.0) 12/24/17 07:48 Eos % (Auto) 2.5 % (0.0-4.0) 12/24/17 07:48 Baso % (Auto) 0.5 % (0.0-2.0) 12/24/17 07:48 Neut # (Auto) 3.0 K/uL (1.8-7.0) 12/24/17 07:48 Lymph # (Auto) 2.8 K/uL (1.0-4.3) 12/24/17 07:48 [place] # (Auto) 0.5 K/uL (0.0-0.8) 12/24/17 07:48 Eos # (Auto) 0.2 K/uL (0.0-0.7) 12/24/17 07:48 Baso # (Auto) 0.0 K/uL (0.0-0.2) 12/24/17 07:48 PT 12.1 SECONDS (9.7-12.2) 12/23/17 08:14 INR 1.1 12/23/17 08:14 APTT 34 SECONDS (21-34) 12/23/17 08:14 D-Dimer, Quantitative < 200 ng/mlDDU (0-243) 12/23/17 08:14 Sodium 144 mmol/L (132-148) 12/24/17 07:48 Potassium 4.3 mmol/L (3.6-5.2) 12/24/17 07:48 Chloride 106 mmol/L (98-107) 12/24/17 07:48 Carbon Dioxide 27 mmol/L (22-30) 12/24/17 07:48 Anion Gap 16 (10-20) 12/24/17 07:48 BUN 12 mg/dL (7-17) 12/24/17 07:48 Creatinine 0.6 mg/dL (0.7-1.2) L 12/24/17 07:48 Est GFR ( Amer) > 60 12/24/17 07:48 Est GFR (Non-Af Amer) > 60 12/24/17 07:48 Random Glucose 78 mg/dL (65-105) 12/24/17 07:48 Calcium 8.9 mg/dl (8.6-10.4) 12/24/17 07:48 Phosphorus 4.0 mg/dL (2.5-4.5) 12/24/17 07:48 Magnesium 2.3 mg/dL (1.6-2.3) 12/24/17 07:48 Total Bilirubin 0.7 mg/dL (0.2-1.3) 12/24/17 07:48 AST 115 U/L (14-36) H D 12/24/17 07:48 ALT 158 U/L (9-52) H D 12/24/17 07:48 Alkaline Phosphatase 82 U/L (38-126) 12/24/17 07:48 Troponin I < 0.0120 ng/mL (0.00-0.120) 12/23/17 20:15 NT-Pro-B Natriuret Pep 71.7 pg/mL (0-900) 12/23/17 08:14 Total Protein 7.0 g/dL (6.3-8.3) 12/24/17 07:48 Albumin 4.1 g/dL (3.5-5.0) 12/24/17 07:48 Globulin 2.9 gm/dL (2.2-3.9) 12/24/17 07:48 Albumin/Globulin Ratio 1.4 (1.0-2.1) 12/24/17 07:48 Free T4 0.78 ng/dL (0.78-2.19) 12/23/17 14:27 TSH 3rd Generation 8.35 mIU/L (0.46-4.68) H 12/23/17 19:54 Urine Color Straw (YELLOW) 12/23/17 08:14 Urine Clarity Clear (Clear) 12/23/17 08:14 Urine pH 7.0 (5.0-8.0) 12/23/17 08:14 Ur Specific [place] 1.004 (1.003-1.030) 12/23/17 08:14 Urine Protein Negative mg/dL (NEGATIVE) 12/23/17 08:14 Urine Glucose (UA) Normal mg/dL (Normal) 12/23/17 08:14 Urine Ketones Negative mg/dL (NEGATIVE) 12/23/17 08:14 Urine Blood Negative (NEGATIVE) 12/23/17 08:14 Urine Nitrate Negative (NEGATIVE) 12/23/17 08:14 Urine Bilirubin Negative (NEGATIVE) 12/23/17 08:14 Urine Urobilinogen Normal mg/dL (0.2-1.0) 12/23/17 08:14 Ur Leukocyte Esterase Neg Parvez/uL (Negative) 12/23/17 08:14 Urine WBC (Auto) 1 /hpf (0-5) 12/23/17 08:14 Urine RBC (Auto) 1 /hpf (0-3) 12/23/17 08:14 Ur Squamous Epith Cells < 1 /hpf (0-5) 12/23/17 08:14 Urine Bacteria Occ (<OCC) H 12/23/17 08:14 Urine HCG, Qual Negative (NEGATIVE) 12/23/17 08:14 Attending/Attestation - Attestation I have personally seen and examined this patient.: Yes I have fully participated in the care of the patient.: Yes I have reviewed all pertinent clinical information, including history, physical exam and plan: Yes
--- NOTE | 2017-12-26 16:10 | CARD ---
APPROVED REPORT Date of service: 12/23/2017 EXAM: Two-dimensional and M-mode echocardiogram with Doppler and color Doppler. Other Information Quality : FairRhythm : NSR INDICATION Dyspnea Chest Pain LEG EDEMA M-Mode DIMENSIONS RVDd1.43 (2.1-3.2cm)Left Atrium (MM)3.19 (2.5-4.0cm) IVSd0.88 (0.7-1.1cm)Aortic Root2.79 (2.2-3.7cm) LVDd4.80 (4.0-5.6cm)Aortic Cusp Exc.1.61 (1.5-2.0cm) PWd0.97 (0.7-1.1cm)FS (%) 30 % LVDs3.37 (2.0-3.8cm)LVEF (%)57 (>50%) Mitral Valve MV E Cobpfncu222.1cm/sMV A Twsphtxe45.0cm/sE/A ratio1.2 TDI E/Lateral E'0.0E/Medial E'0.0 Tricuspid Valve TR Peak Vfmrxded221ju/sTR Peak Gr.[id number] <Conclusion> normal size la,lv & ra rv. normal lv wall otion,thickness,systolic & diastolic funciton with lvef of 60-65%. normal aortic,mitral,tv & pv. tra tr & pi. normal size aortic root. there is no pericardial effusion.
== END 2017-12-24 12:40 | disposition home or self-care (01) ==
LOC: C.ER 07:30 → C.9E 09:14 → C.5S 14:38
PROVIDERS: ADMIT Family Medicine; ATTEND Family Medicine
DX: R06.00 Dyspnea, unspecified (principal); R07.9 Chest pain, unspecified; I10 Essential (primary) hypertension; J45.909 Unspecified asthma, uncomplicated; Z82.49 Family history of ischemic heart disease and other diseases of the circulatory system; Z83.3 Family history of diabetes mellitus; Z90.710 Acquired absence of both cervix and uterus
CPT/HCPCS: 36415; 71045; 80053; 81001; 83520; 83735; 83880; 84100; 84439; 84443; 84484; 84703; 85025; 85378; 85610; 85730; 86038; 93005; 93306; 99285; G0378